=== PATIENT | female | born 1975 | race Caucasian/White ===

== ENCOUNTER → 2016-11-07 | Outpatient (CLI) | payer OTHER ==
[~2016-11-07] MED LIST: ABILIFY10 MG; AMOXICILLIN 50500 MG PO; ASPIRIN EC325 MG PO; ATIVAN1 M1 PO
--- NOTE | 2016-11-07 17:35 | RADIOLOGY REPORT PS360 ---
EXAM: LUMBAR SPINE 5 VIEWS HISTORY: LOW BACK PAIN AT MULTIPLE SITES ORDERING PHYSICIAN: Neha Jo APRN PATIENT AGE: 40 years COMPARISON: None FINDINGS: Normal alignment. No fracture or dislocation. No lytic or blastic change. There is minimal levoscoliosis of the lumbar spine. Mild degenerative disc disease L4-L5 and moderate severe degenerative disc disease L5-S1 with endplate osteophytes at that level. There is some facet arthritic changes also at L4-L5 and L5-S1. IMPRESSION: Degenerative disc disease L4-L5 and L5-S1
== END ==
LOC: RAD 16:07
DX: M54.5 Low back pain (principal)